=== PATIENT | male | born 1975 | race African-American/Black ===

== ENCOUNTER 2021-10-25 15:15 | Observation (INO) | payer OTHER ==
[~2021-10-25] VITALS: Ht 185.4 cm; Wt 104.3 kg
[2021-10-25 15:22] VITALS: BP 131/70
[2021-10-25 15:46] LABS: ABSOLUTE BASOPHILS 0.1 thou/uL (0.0-0.2); ABSOLUTE EOSINOPHILS 0.2 thou/uL (0.0-0.7); ABSOLUTE LYMPHOCYTES 2.5 thou/uL (0.8-5.3); ABSOLUTE MONOCYTES 0.6 thou/uL (0.0-1.2); ABSOLUTE NEUTROPHILS 3.5 thou/uL (1.6-8.1); BASOPHILS 1.1 %; EOSINOPHILS 2.3 %; HEMATOCRIT 45.9 % (42.0-52.0); HEMOGLOBIN 14.1 gm/dL (14.0-18.0); LYMPHOCYTES 37.3 %; MCH 20.8 pg (26.0-34.0); MCHC 30.6 g/dL (28.0-37.0); MCV 67.7 fL (80.0-100.0); MONOCYTES 8.2 %; MPV 6.6 fl. (7.2-11.1); NUCLEATED RBCS 0 /100WBC; PLATELET COUNT* 316 thou/uL (150-400); POLYS 51.1 %; RBC 6.77 mil/uL (4.50-6.00); RDW-CV 15.9 % (10.5-14.5); WBC 6.8 thou/uL (4.0-11.0)
[2021-10-25 15:49] LABS: CALCIUM 8.6 mg/dL (8.5-10.1); CREATININE 1.4 mg/dL (0.6-1.3); POTASSIUM 4.1 mmol/L (3.5-5.1)
[2021-10-25 16:00] LABS: MAGNESIUM 2.3 mg/dL (1.8-2.4); TOTAL BILIRUBIN 0.8 mg/dL (<0.1-1.0); TOTAL PROTEIN 7.1 g/dL (6.4-8.2)
--- NOTE | 2021-10-25 16:44 | EKG ---
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
[2021-10-25 16:57] LABS: ANISOCYTOSIS 1+; MICROCYTES 2+; PLATELET ESTIMATE ADEQUATE
[2021-10-25 18:01] VITALS: BP 124/81
[2021-10-25 18:40] VITALS: BP 132/75
[2021-10-25 20:39] VITALS: BP 124/73
[2021-10-26 01:50] VITALS: BP 111/69
[2021-10-26 03:35] VITALS: BP 103/63
[2021-10-26 04:38] LABS: CHOLESTEROL 183 mg/dL (<200); HDL CHOLESTEROL 44 mg/dL (>40); LDL CHOLESTEROL 128 mg/dL (<100); TC:HDL 4.2 Ratio (Not establshd); TRIGLYCERIDE 56 mg/dL (<150); VLDL 11 mg/dL (<40)
[2021-10-26 04:42] LABS: SERUM ASSESSMENT CLEAR
[2021-10-26 05:54] VITALS: BP 107/60
[2021-10-26 08:00] VITALS: BP 116/79
--- NOTE | 2021-10-26 11:55 | 2DMMODE ---
[place] [address] 2 D/M-MODE ECHOCARDIOGRAM Name: MENDEL KEMP Room: [address] IN [place].#: [id number] Admission: 10/25/21 Attend Phys: Blanca Mendoza Discharge: Date of : 71 Date of Service: 10/26/21 1155 Report #: [id number] THIS REPORT FOR: cc: FAM - No family physician/PCP FAM - No family physician/PCP Franky Mckenzie MD [facility] ~ APPROVED REPORT Study performed: 10/26/2021 10:14:06 EXAM: Comprehensive 2D, Doppler, and color-flow Echocardiogram Patient Location: In-Patient Room #: [facility] Status: routine BSA: 2.28 HR: 97 bpm BP: 107/60 mmHg Rhythm: Atrial Fibrillation Other Information Study Quality: Good Indications Atrial Fibrillation 2D Dimensions IVSd: 12.70 (7-11mm) LVOT Diam: 21.62 (18-24mm) LVDd: 36.43 mm PWd: 10.45 (7-11mm) Ascending Ao: 31.21 (22-36mm) LVDs: 20.71 (25-40mm) Aortic Root: 32.38 mm Volumes Left Atrial Volume (Systole) LA ESV Index: 25.80 mL/m2 Aortic Valve AoV Peak Babatunde.: 1.01 m/s AO Peak Gr.: 4.12 mmHg LVOT Max P.80 mmHg AO Mean Gr.: 2.10 mmHg LVOT Mean P.34 mmHg LVOT Max V: 0.84 m/s AO V2 VTI: 16.50 cm LVOT Mean V: 0.53 m/s LEATHA (VTI): 3.42 cm2 LVOT V1 VTI: 15.37 [place] [address] 2 D/M-MODE ECHOCARDIOGRAM Name: MENDEL KEMP Room: [address] IN [facility]#: [id number] Admission: 10/25/21 Attend Phys: Blanca Mendoza Discharge: Date of : 71 Date of Service: 10/26/21 1155 Report #: [id number] TDI Medial E' Babatunde.: 0.11 m/s Lateral E' Babatunde.: 0.12 m/s Pulmonary Valve PV Peak Babatunde.: 0.77 m/s PV Peak Gr.: 2.39 mmHg Left Ventricle The left ventricle is normal size. There is normal LV segmental wall motion. Mild to moderate concentric left ventricular hypertrophy. Left ventricular systolic function is normal. The left ventricular ejection fraction is within the normal range. LVEF is 60%. This study is not technically sufficient to allow evaluation of the LV diastolic function due to atrial fibrillation. Right Ventricle The right ventricle is normal size. The right ventricular systolic function is normal. Atria Left atrium is mildly dilated. The right atrium size is normal. Aortic Valve The aortic valve is normal in structure. No aortic regurgitation is present. There is no aortic valvular stenosis. Mitral Valve The mitral valve is normal in structure. Mild mitral regurgitation. No evidence of mitral valve stenosis. Tricuspid Valve The tricuspid valve is normal in structure. Unable to assess PA pressure. Trace tricuspid regurgitation. Pulmonic Valve The pulmonary valve is normal in structure. There is no pulmonic valvular regurgitation. Great Vessels The aortic root is normal in size. IVC is normal in size and collapses >50% with inspiration. Pericardium There [place] [address] 2 D/M-MODE ECHOCARDIOGRAM Name: MENDEL KEMP Kassandra Room: [address] IN .R.#: [id number] Admission: 10/25/21 Attend Phys: Blanca Mendoza Discharge: Date of : 71 Date of Service: 10/26/21 1155 Report #: [id number] <Conclusion> The left ventricle is normal size. Mild to moderate concentric left ventricular hypertrophy. Left ventricular systolic function is normal. The left ventricular ejection fraction is within the normal range. LVEF is 60%. This study is not technically sufficient to allow evaluation of the LV diastolic function due to atrial fibrillation. The right ventricle is normal size. Left atrium is mildly dilated. The aortic valve is normal in structure. The mitral valve is normal in structure. Mild mitral regurgitation. The tricuspid valve is normal in structure. IVC is normal in size and collapses >50% with inspiration. There is no pericardial effusion. There is normal LV segmental wall motion. <ELECTRONICALLY SIGNED> By: Franky Mckenzie MD, FACC 10/26/21 1155 1155 1155 Franky Mckenzie MD, FACC /INF
[2021-10-26 12:18] VITALS: BP 120/79
--- NOTE | 2021-10-26 12:48 | EKG ---
[place] [address] ELECTROCARDIOGRAM REPORT Name: [facility] Room: [address] ADM [place] .R.#: [id number] Admission: 10/25/21 Attend Phys: Blanca Mendoza Discharge: Date of : 71 Date of Service: 10/26/21 0953 Report #: [id number] THIS REPORT FOR: //name// 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1975 Requested By: Arya Nuñez Order Number: [id number] Joann MD: Franky Mckenzie Measurements Intervals [place] Rate: 92 P: NE: QRS: 4 QRSD: 101 T: -80 QT: 326 QTc: 404 Interpretive Statements Atrial fibrillation Low voltage, precordial leads Anteroseptal infarct, old possible Nonspecific T abnormalities, lateral leads Baseline wander in lead(s) V1 Compared to ECG 10/25/2021 15:24:11 Low QRS voltage now present Myocardial infarct finding now present T-wave abnormality still present Electronically Signed On 10-26-2021 12:48:44 [employer] SPANISH TEACHER by Franky Mckenzie [email or web address] <ELECTRONICALLY SIGNED> By: Franky Mckenzie MD, [facility] 10/26/21 1248 0953 0953 Franky Mckenzie MD, [facility] /EPI
[2021-10-26] MEDS ORDERED: DILTIAZEM 24HR180 M1 PO (14:55)
[2021-10-26] MEDS ORDERED: FLECAINIDE ACET50 M1 PO (14:55)
[2021-10-26 15:39] VITALS: BP 120/79
--- NOTE | 2021-10-27 08:20 | CON ---
[address] [address] CONSULTATION Name: MENDEL KEMP Room: [address] Richard Gaitan#: [id number] Admission: 10/25/21 Attend Phys: Marco Redd Discharge: 10/26/21 Date of : 71 Report #: [id number] THIS REPORT FOR: cc: FAM - No family physician/PCP FAM - No family physician/PCP Arya Nuñez MD [facility] ~ cc: ____ ____ DATE OF CONSULTATION: 10/25/2021 HISTORY OF PRESENT ILLNESS: The patient is a 46-year-old single black male who I was asked to see in the Emergency Room today after he presented with atrial fibrillation. The history was obtained from the patient. There are no old records available. There are no family members available. The patient stays very active, working out on a regular basis. He has no previous cardiac evaluation. He notes in the past, he has had occasional episodes when his heart would beat irregular, but did not last very long. Today, he was working at the gym. He then drove home. He felt somewhat dizzy. He notes his heart was beating fast and irregular. He sat down. He finally drove himself to the Emergency Room, was found to be in atrial fibrillation. Cardiology consultation requested. He denies a history of chest pain, shortness of breath, fever, cough. PAST MEDICAL HISTORY: Cataract extraction. He has no history of hypertension, diabetes, hyperlipidemia. MEDICATIONS: He is on no medications. ALLERGIES: He has no known drug allergies. FAMILY HISTORY: Negative for heart disease. SOCIAL HISTORY: He is single, lives in [place]. 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 No smoking. Rarely drinks alcohol. No caffeine use. No illicit drug use. REVIEW OF SYSTEMS: He is a large male, being 6 feet 1 inch, 220 pounds. He has sleep apnea, occasionally uses a CPAP. No history of asthma, liver disease, kidney disease, cancer, psychiatric illness, chronic skin condition. PHYSICAL EXAMINATION: GENERAL: Revealed a middle-aged male, appeared in no acute distress. VITAL SIGNS: He had a blood pressure of 130/70, pulse 115 and irregular. He was afebrile. HEENT: He was anicteric. Conjunctivae pink. [place] [address] CONSULTATION Name: MENDEL KEMP Room: [address] Richard Gaitan#: [id number] Admission: 10/25/21 Attend Phys: Marco Redd Discharge: 10/26/21 Date of : 71 Report #: [id number] NECK: Neck veins not distended. No carotid bruits. Neck is supple. CHEST: Clear to auscultation. HEART: Regular, tachycardia. No significant murmur. ABDOMEN: Soft. EXTREMITIES: Had no edema. Posterior tibial pulse 2+ bilaterally. SKIN: Cool and dry. NEUROLOGIC: Nonfocal. LABORATORY DATA: ECG on admission showed atrial fibrillation with an increased ventricular response rate. His workup in the Emergency Room so far, lab work, potassium 4.1, creatinine 1.4. High sensitivity troponin less than 4. BNP 13. Hemoglobin 14.1. IMPRESSION AND RECOMMENDATIONS: 1. Atrial fibrillation. The patient started on diltiazem for rate control. He appears to have a CHADS-VASc score of 0. I would consider aspirin. If he fails to convert, I would consider cardioversion or antiarrhythmic therapy. 2. Sleep apnea. The patient has been on BiPAP in the past. <ELECTRONICALLY SIGNED> By: Arya Nuñez MD, FACC 10/27/21 0820 1505 1912Dvanessa Nuñez MD, FACC /nt
== END 2021-10-26 17:06 | disposition home or self-care (01) ==
LOC: M.ERS 15:15 → M.2W 16:07 → M.TBA-ER 16:07 → M.2W 18:20
PROVIDERS: Emergency Medicine Emergency Medical Services; Internal Medicine Cardiovascular Disease; ADMIT Internal Medicine; ATTEND Internal Medicine
DX: I48.0 Paroxysmal atrial fibrillation (principal); D68.59 Other primary thrombophilia; G47.33 Obstructive sleep apnea (adult) (pediatric); Z20.822 Contact with and (suspected) exposure to COVID-19; N17.0 Acute kidney failure with tubular necrosis; E78.5 Hyperlipidemia, unspecified; Z79.899 Other long term (current) drug therapy; Z79.01 Long term (current) use of anticoagulants